=== PATIENT | female | born 1980 | race Caucasian/White ===

== ENCOUNTER 2016-10-16 14:19 | Emergency (ER) | payer MEDICAID ==
[~2016-10-16 14:19] MED LIST: AMOXIL500 MG PO; BACTRIM DS TABL1 TA2 PO; BENTYL10 MG PO; BISACODYL10 MG/SUPP PR; CARAFATE1 G PO; CIPRO PO; COLACE PO; FLAGYL PO; IBUPROFEN800 MG PO; KCL PO; LEVAQUIN PO; LOPERAMIDE HCL2 M1 PO; MAGNESIUM400 MG PO; MILK OF MAGNESIA PO; NAPROSYN500 MG PO; NO MEDICATIONS; OMEPRAZOLE40 M1 PO; ORUDIS75 M1 PO; PAIN RELIEVER325 M1 PO; PERCOCET 10-651 EACH PO; PHENERGAN PO; PHENERGAN PR; PHENERGAN12.5 M1 PR; PHENERGAN25 M1 PO; PHENERGAN25 MG PO; REGLAN5 MG PO; VICODIN 5/1 TAB 5/50 PO; ZOFRAN ODT4 MG PO
== END 2016-10-16 15:51 | disposition home or self-care (01) ==
LOC: CFTX 14:19 → CED 14:19 → CFTX 15:49
DX: S61.217A Laceration without foreign body of left little finger without damage to nail, initial encounter (principal); F17.210 Nicotine dependence, cigarettes, uncomplicated; F43.10 Post-traumatic stress disorder, unspecified; F41.9 Anxiety disorder, unspecified; Z23 Encounter for immunization; Z90.49 Acquired absence of other specified parts of digestive tract; Z90.89 Acquired absence of other organs; Y08.89XA Assault by other specified means, initial encounter
CPT/HCPCS: 12001; 90471; 90715; 99283